=== PATIENT | female | born 1970 | race African-American/Black ===

== ENCOUNTER 2018-07-30 13:49 | Emergency (ER) | payer SELFPAY ==
[~2018-07-30] VITALS: Ht 180.3 cm; Wt 64.0 kg
[2018-07-30] MEDS ORDERED: SODIUM CHLORIDE 0.9% 1,000 ML IV ONE (15:48)
[2018-07-30 16:17] LABS: BASOPHILS % 0.6 % (0.0-2.0); EOSINOPHILS % 4.6 % (0.0-5.0); HEMATOCRIT. 27.9 % (36.0-48.0); HEMOGLOBIN. 9.6 g/dL (12.0-16.0); LYMPHOCYTES % 47.5 % (20.0-50.0); MEAN CORPUSCULAR HEMOGLOBIN 34.4 pg (28.0-32.0); MEAN CORPUSCULAR VOLUME 100.3 fL (81.0-99.0); MEAN PLATELET VOLUME 8.3 fl (7.4-10.4); MONOCYTES % 9.4 % (2.0-8.0); NEUTROPHILS % 37.9 % (40.0-76.0); PLATELET 181 x1000/uL (130-400); RED BLOOD CELL COUNT 2.79 mill/uL (4.2-5.4); RED CELL DISTRIBUTION WIDTH 13.5 % (11.6-14.6)
[2018-07-30 16:19] LABS: CHLORIDE 114 mEq/L (98-107)
[2018-07-30 16:25] LABS: ETHANOL BLOOD 233 mg/dL
[2018-07-30 16:33] LABS: HCG SCREEN NEGATIVE
[2018-07-30 16:35] LABS: *BARBITURATES SCREEN URINE NEGATIVE (NEGATIVE); *BENZODIAZEPINES SCREEN URINE NEGATIVE (NEGATIVE); *COCAINE SCREEN URINE NEGATIVE (NEGATIVE)
[2018-07-30 16:37] LABS: *AMPHETAMINES SCREEN URINE NEGATIVE (NEGATIVE)
[2018-07-30 16:42] LABS: CANNABINOID URINE SCREEN NEGATIVE (NEGATIVE); METHADONE URINE SCREEN NEGATIVE (NEGATIVE); OPIATES URINE SCREEN NEGATIVE (NEGATIVE)
[2018-07-30 16:45] LABS: PHENCYCLIDINE URINE SCREEN NEGATIVE (NEGATIVE)
[2018-07-30 18:00] VITALS: BP 118/83
== END 2018-07-30 18:19 | disposition home or self-care (01) ==
LOC: ER 13:49
DX: F10.229 Alcohol dependence with intoxication, unspecified (principal); F99 Mental disorder, not otherwise specified; D64.9 Anemia, unspecified; R45.1 Restlessness and agitation; Y90.7 Blood alcohol level of 200-239 mg/100 ml
CPT/HCPCS: 36415; 80053; 80305; 80307; 80329; 84703; 85025; 99283; G0482; J7030